=== PATIENT | female | born 1965 | race Caucasian/White ===

== ENCOUNTER 2017-01-12 09:56 | Emergency (ER) | payer OTHER, BC ==
[2017-01-12] MEDS ORDERED: LETS SOLN TOPICAL 1 EA SYR TP ONE ×2 (10:10→10:13)
--- NOTE | 2017-01-12 10:16 | UCPHY ---
H & P Time Seen by Provider: 01/12/17 10:11 Patient Type: New HPI/ROS: Chief complaint. thumb laceration HPI. 51-year-old female left thumb laceration cut on a preparing box tender this morning. She is right handed. Denies focal weakness paresthesias no sense of retained foreign body. She tells me she is up-to-date on her tetanus status ROS Constitutional. no fever/chills, no weakness Eyes. no problems with vision ENT. no sore throat, no nasal drainage Cardiovascular. no chest pain Respiratory. no shortness of breath, no cough Abdominal. no abdominal pain, no nausea/vomiting, no diarrhea . no problems urinating MS. no calf pain/swelling, no neck/back pain, no joint pain Skin. Laceration left thumb Lymph. no swollen glands Neuro. no headache, no dizziness, no difficulty walking or with speechChief complaint. Past Medical/Surgical History: Healthy Social History: , nonsmoker, no alcohol Smoking Status: Never smoked Physical Exam: General Appearance: Alert well-developed female mild distress vital signs are stable Eyes: Pupils equal and round no pallor or injection. ENT, Mouth: Mucous membranes are moist. Respiratory: There are no retractions, lungs are clear to auscultation. Cardiovascular: Regular rate and rhythm. Gastrointestinal: Abdomen is soft and nontender, no masses, bowel sounds normal. Neurological: Awake and alert, sensory and motor exams grossly normal. Skin: 2 cm laceration base of the left thumb on the flexor side. Good strength against resistance in in both Flexeril extension. Distal motor vascular sensitivity is intact Musculoskeletal: Neck is supple nontender. Extremities symmetrical, full range of motion. Psychiatric: Patient is oriented X 3, there is no agitation. Constitutional: Initial Vital Signs Temperature (C) 36.5 C 01/12/17 10:21 Heart Rate 70 01/12/17 10:21 Respiratory Rate 16 01/12/17 10:21 Blood Pressure 149/95 H 01/12/17 10:21 O2 Sat (%) 100 01/12/17 10:21 O2 Delivery Mode Room Air Allergies/Adverse Reactions: No Known Allergies Allergy (Verified 01/12/17 10:19) Home Medications: Medication Instructions Recorded Estradiol 1 MG (RX) 06/29/14 Progesterone,Micronized 100 mg PO 06/29/14 [Progesterone] MDM/Departure - MDM Procedures: Patient is concerned about pain from the injection and so Lat is applied Procedure: Laceration repair. Verbal consent was obtained from the patient. The 2 cm laceration on the base left thumb was anesthetized in the usual fashion. The wound was irrigated, draped and explored to its base with a gloved finger. There were no deep structures involved. No tendon injury was identified. The wound was repaired with five 5-0 Prolene sutures. The wound repair was simple. The procedure was performed by myself. Medications Given: Discontinued Medications Tetracaine/Epinephrine/Lidocaine (Lets Soln Topical) 1 ea TP EDNOW ONE Stop: 01/12/17 10:11 Last Admin: 01/12/17 10:10 Dose: 1 ea ED Course/Re-evaluation: On re-evaluation patient remained stable. Patient and I discussed treatment plan including criteria for return importance of follow-up further evaluation. She expresses understanding and agreement Differential Diagnosis: I considered tendon laceration, retained foreign body, infection potential - Depart Disposition: Home, Routine, Self-Care Clinical Impression: Laceration of left thumb Qualifiers: Encounter type: initial encounter Qualified Code(s): S61.012A - Laceration without foreign body of left thumb without damage to nail, initial encounter Condition: Good Instructions: Care For Your Stitches (ED) Additional Instructions: Keep cut clean and dry. You may shower and wash her hands with stitches in. Avoid immersion. Return for signs of infection. Stitches out 10 days Referrals: Guera Martin MD [Primary Care Provider] - As per Instructions - PQRS PQRS Measurement: 134: Depression screening and followup, PRIME MD-PHQ2 (12 years and older) Over the last 2 weeks, how often have you been bothered by any of the following problems? 1. Feeling down, depressed, or hopeless? 2. Little interest or pleasure in doing things? Patient answered no to both 1 and 2 130: Documentation of medications. Reviewed all patient medications, doses, route and frequency. 226: Do you smoke? No.
[2017-01-12 10:23] VITALS: BP 149/95; PULSE 70; RESP 16; TEMP 97.7; O2SAT 100
== END 2017-01-12 11:19 | disposition home or self-care (01) ==
LOC: CED 09:56
PROC: 0HQGXZZ Repair Left Hand Skin, External Approach (ICD-10-PCS; principal; 2017-01-12)
DX: S61.012A Laceration without foreign body of left thumb without damage to nail, initial encounter (principal); W26.0XXA Contact with knife, initial encounter; Y92.513 Shop (commercial) as the place of occurrence of the external cause; Y99.0 Civilian activity done for income or pay
CPT/HCPCS: 12001-PO; 99202-PO; G0463-PO

== ENCOUNTER → 2018-05-17 | Outpatient (CLI) | payer BC | LOC: CIMAGING 15:13 | PROVIDERS: ATTEND Internal Medicine Endocrinology, Diabetes & Metabolism | DX: D25.2 Subserosal leiomyoma of uterus (principal); R93.8 Abnormal findings on diagnostic imaging of other specified body structures; E28.0 Estrogen excess | CPT/HCPCS: 76830-PO ==

== ENCOUNTER → 2018-12-25 | Outpatient (CLI) | payer MEDICAID | LOC: CIMAGING 13:26 | DX: M19.012 Primary osteoarthritis, left shoulder (principal) | CPT/HCPCS: 73030-PO ==